=== PATIENT | male | born 1975 | race Caucasian/White ===

== ENCOUNTER 2017-04-11 22:30 | Emergency (ER) | payer OTHER ==
[2017-04-11] MEDS ORDERED: Acetaminophen/HYDROcodone 325-5 MG Tab PO ONE (23:43)
--- NOTE | 2017-04-13 09:25 | ER ---
DATE SEEN: 04/11/2017 CHIEF COMPLAINT: Pain. 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 Pain is moderate to severe worse with any movement. No difficulty in breathing. It seems to radiate to the back. ALLERGIES: None. PAST MEDICAL HISTORY: No active medical problems. MEDICATIONS: None. PHYSICAL EXAMINATION: GENERAL: He is not in any cardiopulmonary distress. VITAL SIGNS: Unremarkable. HEAD: Normocephalic. NECK: No signs of trauma. CHEST: There is tenderness to palpation of the right rib cage. RESPIRATORY: Clear breath sounds on both sides with normal air exchange. DIAGNOSTIC DATA: X-ray on 04/11/2017 rib fractures noted. No evidence of a pneumothorax. IMPRESSION: Rib fractures. PLAN: Send him home with hydrocodone tablet t.i.d. p.r.n., advised him to use ibuprofen for pain, and follow up with PCP next week. /[id number] KEERTHI/BLACK
== END 2017-04-11 23:48 | disposition home or self-care (01) ==
LOC: FB.ED 22:30
DX: S22.41XA Multiple fractures of ribs, right side, initial encounter for closed fracture (principal); W22.8XXA Striking against or struck by other objects, initial encounter; Y92.69 Other specified industrial and construction area as the place of occurrence of the external cause
CPT/HCPCS: 71101-RT; 99283; A9270-GY